=== PATIENT | female | born 1965 | race Caucasian/White ===

== ENCOUNTER → 2020-03-07 | Emergency (ER) | payer BC ==
[~2020-03-07] VITALS: Ht 167.6 cm; Wt 68.2 kg
[~2020-03-07] MED LIST: ANTIDEPRESSANT; BREO ELLIPTA 11 EACH INH; COLACE100 MG PO; MAGNESIUM OXID250 MG PO; OMEPRAZOLE40 MG PO; PROAIR HFA8.5 G1 INH; STERAPRED DS 1010 MG PO; TOPAMAX200 MG PO
[2020-03-07 17:14] VITALS: Ht 167.6 cm; Wt 68.2 kg
[2020-03-07 18:16] VITALS: BP 144/80
== END | disposition home or self-care (01) ==
LOC: D.ER 17:11
DX: J45.901 Unspecified asthma with (acute) exacerbation (principal); R06.00 Dyspnea, unspecified; R05 Cough; R68.89 Other general symptoms and signs

== ENCOUNTER 2020-04-15 20:53 | Emergency (ER) | payer BC ==
[~2020-04-15] VITALS: Ht 167.6 cm; Wt 70.5 kg
[2020-04-15 21:08] VITALS: Ht 167.6 cm; Wt 70.5 kg
[2020-04-15] MEDS ORDERED: ATIVAN1 MG PO (21:10)
[2020-04-15] MEDS ORDERED: TOPAMAX100 MG PO (21:10)
[2020-04-15] MEDS ORDERED: ANTIDEPRESSANT (21:10)
[2020-04-15] MEDS ORDERED: COLACE100 MG PO (21:10)
[2020-04-15 22:54] VITALS: BP 132/80
== END 2020-04-15 22:45 | disposition home or self-care (01) ==
LOC: D.ER 20:53
DX: S99.922A Unspecified injury of left foot, initial encounter (principal); W22.8XXA Striking against or struck by other objects, initial encounter; Y93.9 Activity, unspecified; Y92.9 Unspecified place or not applicable; J45.909 Unspecified asthma, uncomplicated

== ENCOUNTER 2020-09-13 16:05 | Emergency (ER) | payer BC ==
[~2020-09-13] VITALS: Ht 172.7 cm; Wt 70.5 kg
[~2020-09-13 16:05] MED LIST changes: +ATIVAN1 MG PO; +IBUPROFEN800 MG PO; +TOPAMAX100 MG PO; +VENTOLIN HFA [SP8 GM INH; +XOPENEX HFA15 GM INH
[2020-09-13 16:11] VITALS: BP 176/97; Ht 172.7 cm; Wt 70.5 kg
[2020-09-13 16:54] LABS: HEMATOCRIT 40.3 % (36.0-48.0); HEMOGLOBIN 13.1 g/dL (12-16); LYMPHOCYTES 14.3 % (15-50); MCH 29.8 pg (26.0-34.0); MCHC 32.5 g/dL (31.0-37.0); MCV 91.6 fL (80.0-100.0); MEAN PLATELET VOLUME 9.6 fL (7.4-10.4); NEUTROPHILS 78.7 % (40-80); PLATELET COUNT 189 10x3/uL (130-400); RDW 13.8 % (11.5-14.5); WBC 6.2 10x3/uL (4.8-10.8)
[2020-09-13 17:09] LABS: ANION GAP 12.5 mmol/L (8-16); CALCIUM 8.7 mg/dL (8.5-10.1); CARBON DIOXIDE 24.5 mmol/L (21.0-32.0); CREATININE - SERUM 1.3 mg/dL (0.6-1.3)
[2020-09-13 17:14] LABS: ALBUMIN 3.7 g/dL (3.4-5.0); BILIRUBIN - TOTAL 0.26 mg/dL (0.2-1.3); PROTEIN - SERUM 6.6 g/dL (6.4-8.2)
== END 2020-09-13 22:22 | disposition other institution (70) ==
LOC: D.ER 16:05
PROVIDERS: Emergency Medicine
DX: N23 Unspecified renal colic (principal); R79.89 Other specified abnormal findings of blood chemistry; N13.1 Hydronephrosis with ureteral stricture, not elsewhere classified; I10 Essential (primary) hypertension; J45.909 Unspecified asthma, uncomplicated

== ENCOUNTER 2020-10-26 12:37 | Observation (INO) | payer BC ==
[~2020-10-26] VITALS: Ht 172.7 cm; Wt 70.3 kg
--- NOTE | ~2020-10-26 | HEMODYNAMI ---
PATIENT:SERGIO PRAKASH MEDICAL RECORD: [id number] : 61 LOCATION:[address] ADMISSION DATE: 10/26/20 Generatedon:19:19 Patient name: SERGIO PRAKASH Patient #: [id number] SSN: : 1965 Date of study: 10/27/2020 Page: Of Hemodynamic Procedure Report Patient Data Patient Demographics Procedure consent was obtained First Name: SERGIO Gender: Female Last Name: OLINDA : 1965 Middle Initial: L Age: 55 year(s) Patient #: [id number] Race: Unknown Additional ID: [id number] Contact details Address: [address] [place] [address] State: [place] City: [place] Zip code: [address] Past Medical History Allergies Allergen Reaction Date Comments Reported Other allergy 10/27/2020 NESSA MCCALL. MARTIN BRENNAN Admission Admission Data Admission Date: 10/26/2020 Admission Time: 13:47 Room #: .2121 Height (in.): 67.72 BSA: 1.83 (m2) Height (cm.): 172 BMI: 23.66 (kg/m2) Weight (lbs.): 154.32 Weight (kg.): 70 Lab Results Lab Result Date: 10/27/2020 Lab Result Time: 0:00 Biochemistry Name Units Result Min Max BUN mg/dl 16 --(---*)-- 7 18 Creatinine mg/dl 1.1 --(--*-)-- 0.6 1.3 eGFR ml/min 54 *-(----)-- 90 120 NONAFRICAN CBC Name Units Result Min Max Hematocrit % 37.2 *-(----)-- 42 54 Hemoglobin g/dl 11.9 *-(----)-- 13.5 17.5 Procedure Procedure Types Cath Procedure Diagnostic Procedure LHC LHC w/Coronaries Procedure Description Procedure Date Procedure Date: 10/27/2020 Procedure Start Time: 9:07 Procedure End Time: 9:16 Procedure Staff Name Function Roverto Andrews MD Performing Physician Gay Lofton RT Monitor Sharla Barron RT Scrub Jose Morrison RN Nurse Procedure Data Cath Procedure Fluoroscopy Diagnostic fluoroscopy Total fluoroscopy Time: 0.9 time: 0.9 min min Diagnostic fluoroscopy Total fluoroscopy dose: 268 dose: 268 mGy mGy Contrast Material Contrast Material Type Amount (ml) Isovue 300 39 Entry Location Entry Primary Successful Side Size Upsize Upsize Entry Closure Succes sful Closure Location (Fr) 1 (Fr) 2 (Fr) Remarks Device Remarks Femoral Right 5 Fr Exoseal artery Estimated blood loss: 5 ml Diagnostic catheters Device Type Used For End Catheter Placement MULTIPACK JL 4.0 5Fr Procedure catheter MULTIPACK 3DRC 5Fr Procedure catheter MULTIPACK Pigtail 5 Fr Procedure catheter Procedure Complications No complications Procedure Medications Medication Administration Route Dosage Oxygen etCO2 Nasal cannula 2 l/min Lidocaine 2% added to field 20 Heparin Flush Bag added to field 2 bags (1000units/500ml NS) 0.9% NaCl I.V. 100 ml/hr Versed I.V. 2 mg Fentanyl I.V. 50 mcg Versed I.V. 1 mg Fentanyl I.V. 50 mcg Versed I.V. 1 mg Solumedrol I.V. 125 mg Hemodynamics Rest BSA: 1.83 (m2) HGB: 11.9 (g/dl) O2 Consumption: Estimated: 165.51 (ml/min) O2 Co nsumption indexed: Estimated:90.44 (ml/min/m) Heart Rate: 56 (bpm) Pressure Samples Time Site Value (mmHg) Purpose Heart Use Rate(bpm) 9:12 LV 115/8,26 Snapshot 56 9:12 LV 110/16,26 Snapshot 56 Gradients Valve Time Site Site Mean SEP/DFP Peak To Heart Use 1 2 (mmHg) (sec/min) Peak Rate (mmHg) (bpm) Aortic 9:13 LV AO 55 Snapshots Pre Cath Intra NCS Post Cath Vital Signs Time Heart Resp SPO2 etCO2 NIBP (mmHg) Rhythm Pain Sedation Rate (ipm) (%) (mmHg) Status Level (bpm) 8:55:24 58 22 99 0 129/73(104) NSR 0 (11) 10(A) , No pain 8:59:34 60 16 98 35.6 135/72(95) NSR 0 (11) 10(A) , No pain 9:03:44 53 17 98 31.2 106/62(83) NSR 0 (11) 10(A) , No pain 9:07:51 62 15 98 37.8 107/64(94) NSR 0 (11) 9(A) , No pain 9:12:01 55 14 98 34.9 106/62(82) NSR 0 (11) 9(A) , No pain 9:18:59 61 12 97 31.9 118/59(94) NSR 0 (11) 10(A) , No pain Medications Time Medication Route Dose Verified Delivered Reason Notes Effe ctiveness by by 9:03:43 Oxygen etCO2 2 Roverto Buffie used for Nasal l/min Darryl Morrison mobile lab technician cannula 9:03:49 Lidocaine 2% added 20ml Roverto Roverto for local to vial [facility] anesthetic field MD WILLIAM 9:03:56 Heparin Flush added 2 Roverto Roverto used for Bag to bags [facility] procedure (1000units/500ml field MD WILLIAM NS) 9:04:04 0.9% NaCl I.V. 100 Roverto Buffie Per ml/hr St Demetrius Morrison RN physician 9:04:16 Versed I.V. 2 mg Roverto Sharleneie for DarrylDemetrius Morrison RN sedation 9:04:23 Fentanyl I.V. 50 Roverto Buffie for [facility] DarrylDemetrius Morrison RN sedation 9:08:03 Versed I.V. 1 mg Roverto Suie for Darryl Morrison RN sedation 9:08:06 Fentanyl I.V. 50 Roverto Suie for [facility] DarrylDemetrius Morrison RN sedation 9:11:26 Versed I.V. 1 mg Roverto Suie for Darryl Morrison RN sedation 9:16:25 Solumedrol I.V. 125 Roverto Suie Per mg Darryl Morrison RN physician Procedure Log Time Note 8:25:30 Informed consent obtained and on chart 8:26:18 Procedure Status Urgent Heart Cath (IP). 8:26:22 Time tracking: Call back (After hours or weekends) 8:26:25 Plan of Care:Hemodynamics will remain stable., Cardiac rhythm will remain stable., Comfort level will be maintained., Respiratory function will remain adequate., Patient/ family verbilizes understanding of procedure., Procedure tolerated without complication., Recovers from procedure without complications.. 8:26:32 H&P Date Dictated: 10/26/2020 ER History on chart.. 8:27:00 Patient allergic to Other allergyPCN, HALDOL. MARTIN BRENNAN 8:30:18 Jose Morrison RN sent for patient. Start room use. 8:47:00 Patient received from Med II to CCL 1 Alert and oriented. Tansferred to table in Supine position. 8:47:02 Warm blankets applied, and jose eduardo hugger turned on for patient comfort. 8:47:02 Correct patient and procedure confirmed by team. 8:47:03 ECG and BP/O2 sat monitors applied to patient. 8:54:17 Baseline sample Acquired. 8:54:17 Vital chart was started 8:54:20 Rhythm: sinus bradycardia 8:54:21 Full Disclosure recording started 8:54:21 Pre-procedure instructions explained to patient. 8:54:21 Pre-op teaching completed and patient verbalized understanding. 8:54:23 Family unavailable. 8:54:24 Patient NPO since Midnight. 8:55:45 Is the patient allergic to Iodine/contrast media? No. 8:55:47 Is patient on blood thinner?No 8:57:17 Patient diabetic? No. 8:57:19 Patient not . Patient is over age 55. 8:57:20 Previous problem with sedation/anesthesia? No ? 8:57:22 Snore? Yes 8:57:23 Sleep apnea? No 8:57:24 Deviated septum? No 8:57:25 Opens mouth fully? Yes 8:57:26 Sticks out tongue? Yes 8:57:33 Airway obstruction? Yes ASTHMA AND POST COVID 8:57:35 Dentures? No ? 8:57:38 Pre procedure: right dorsailis pedis pulse 1+ Palpable, but thready & weak; easily obliterated 8:57:40 Patient pain scale 4/10 ?. 8:57:46 IV patent on arrival in left antecubital with 0.9% NaCl at [facility]. 8:58:12 Lab Result : BUN 16 mg/dl 8:58:12 Lab Result : eGFR NONAFRICAN 54 ml/min 8:58:12 Lab Result : Creatinine 1.1 mg/dl 8:58:12 Lab Result : Hemoglobin 11.9 g/dl 8:58:12 Lab Result : Hematocrit 37.2 % 8:58:15 Lab results completed and on chart. 8:58:18 Right Radial & Right Groin area was prepped with chlora-prep and draped in sterile fashion 8:58:19 Alarms reviewed by RAmee N. 8:58:19 Sharps counted by scrub and verified by R.N. 8:58:26 Patient Weight : 154.32 lbs 8:58:28 Patient Height : 67.72 inches 9:00:39 Use device set Femoral Dx 9:00:40 ACIST Syringe (14328) opened to sterile field. 9:00:41 Bag Decanter (2002S) opened to sterile field. 9:00:42 ACIST Hand Control (76508) opened to sterile field. 9:00:42 ACIST Manifold (42814) opened to sterile field. 9:00:43 Tegaderm 4 x 4 (1626W) opened to sterile field. 9:00:45 Medline Cath Pack ([id number]) opened to sterile field. 9:00:46 DIAGNOSTIC Multipack 5Fr catheter set (VY4631) opened to sterile field. 9:00:47 SHEATH 5FR [place] (YSB391) opened to sterile field. 9:00:47 EMERALD Guide Wire (752-549) opened to sterile field. 9:02:14 --------ALL STOP TIME OUT------ 9:02:14 Final Timeout: patient, procedure, and site verified with staff and physician. All members of the team are in agreement. 9:02:15 Right groin site verified by team. 9:02:18 Fire Safety Assessment: A--An alcohol-based skin anteseptic being used preoperatively., C--Open oxygen or nitrous oxide is being used., D--An ESU, laser, or fiber-optic light is being used. 9:02:20 Physical assessment completed. ASA score P 2 - A patient with mild systemic disease as per Roverto Andrews MD. 9:02:24 3a) 45-59 Moderately reduced kidney function. 9:02:26 Maximum allowable contrast dose (3.7 X eGFR X 0.75)150 ml. 9:02:29 Sedation plan: IV Moderate Sedation Medication:Versed, Fentanyl 9:03:43 Oxygen 2 l/min etCO2 Nasal cannula was administered by Jose Morrison RN; used for procedure; Verbal order read back and verified. 9:03:49 Lidocaine 2% 20ml vial added to field was administered by Roverto Andrews MD; for local anesthetic; Verbal order read back and verified. 9:03:56 Heparin Flush Bag (1000units/500ml NS) 2 bags added to field was administered by Roverto Andrews MD; used for procedure; Verbal order read back and verified. 9:04:04 0.9% NaCl 100 ml/hr I.V. was administered by Jose Morrison RN; Per physician; Verbal order read back and verified. 9:04:16 Versed 2 mg I.V. was administered by Jose Morrison RN; for sedation; Verbal order read back and verified. 9:04:23 Fentanyl 50 mcg I.V. was administered by Jose Morrison RN; for sedation; Verbal order read back and verified. 9:07:32 Procedure started. 9:07:37 Local anesthetic to right femoral artery with Lidocaine 2% by Roverto Andrews MD.INITIAL ACCESS ONLY 9:08:03 Versed 1 mg I.V. was administered by Jose Morrison RN; for sedation; Verbal order read back and verified. 9:08:06 Fentanyl 50 mcg I.V. was administered by Jose Morrison RN; for sedation; Verbal order read back and verified. 9:09:04 A 5 Fr sheath was inserted into the Right Femoral artery 9:09:14 A MULTIPACK JL 4.0 5Fr catheter was advanced over the wire and used for Procedure. 9:10:17 LCA angiography performed. 9:10:18 Catheter removed. 9:10:24 A MULTIPACK 3DRC 5Fr catheter was advanced over the wire and used for Procedure. 9:11:21 RCA angiography performed. 9:11:22 Catheter removed. 9:11:24 ACCDominant side:Right 9:11:26 Versed 1 mg I.V. was administered by Jose Morrison RN; for sedation; Verbal order read back and verified. 9:11:28 A MULTIPACK Pigtail 5 Fr catheter was advanced over the wire and used for Procedure. 9:12:40 LV gram done using ZAYAS 9:12:42 Injector settings: Ml/sec: 10, Volume: 20, 9:12:55 LV hemodynamics recorded. 9:13:26 EF : 55 % 9:13:35 Catheter removed. 9:13:37 EXOSEAL 5Fr (EX500) opened to sterile field. 9:13:45 Sheath removed intact; hemostasis achieved with Exoseal to the Right Femoral artery. 9:13:57 Procedure ended.(Physican Out) 9:14:08 Contrast amount:Isovue 300 39ml. 9:14:09 Maximum allowable dose exceeded? No. 9:14:14 Fluoroscopy time 00.90 minutes. 9:14:18 Fluoroscopy dose: 268 mGy 9:14:18 Flurop Dose total: 268 9:14:22 Dose Area Product 02825 mGy/cm. 9:14:25 Post-op/insertion site Right Femoral artery dressed using a 4 x 4 and Tegaderm. 9:14:30 Post-procedure physical assessment completed. ASA score P 2 - A patient with mild systemic disease as per Roverto Andrews MD. 9:14:34 Post procedure rhythm: sinus bradycardia 9:14:41 Estimated blood loss: 5 ml 9:14:43 Post procedure instruction explained to patient.Patient verbalizes understanding. 9:14:43 Patient needs reinforcement of post procedure teaching. 9:15:12 Procedure and supply charges have been captured, reviewed, submitted and are correct. 9:15:14 Procedure Complication : No complications 9:15:16 Vital chart was stopped 9:15:18 [facility] Findings: mild to moderate CAD (<70%) 9:15:19 Operative report dictated upon procedure completion. 9:15:19 See physician's report for complete and final results. 9:15:21 Report given to [facility]. 9:15:24 Patient transfered to [facility] with Bed. 9:16:25 Solumedrol 125 mg I.V. was administered by Jose Morrison RN; Per physician; Verbal order read back and verified. 9:16:43 Procedure ended. 9:16:43 Full Disclosure recording stopped 9:17:49 End room use (Document Last) 9:18:14 Procedure ended.(Physican Out) Device Usage Item Name Manufacture Quantity Catalog Hospital Part Current Minimal L ot# / Number Charge Number Stock Stock Serial# Code ACIST Acist 1 22296 [id number] 435118 856934 20 Immerse Learning (21686) Systems Inc Bag Microtek 1 069655 97891 565761 5 Decanter Medical Inc. () ACIST Hand Acist 1 87670 056374 300803 956659 5 Control Medical (57619) Systems Inc ACIST Acist 1 16450 202544 941023 534026 5 Manifold Medical (29548) Systems Inc Tegaderm 4 3M 1 1626W 043802 115714 710662 5 x 4 (1626W) Medline Medline 1 [id number] 020539 15793 737803 5 Cath Pack ([id number]) DIAGNOSTIC Cardinal 1 [id number] 303695 06439 671457 30 Multipack HypeSpark 5Fr catheter set (NI7866) SHEATH 5FR Terumo 1 CIK435 652313 893520 172429 5 [place] (FGN227) EMERALD Cardinal 1 502-455 733709 246549 175588 5 Guide Wire Health (502455) MULTIPACK Cardinal 1 228741 5 JL 4.0 5Fr Health catheter MULTIPACK Cardinal 1 592905 5 3DRC 5Fr Health catheter MULTIPACK Cardinal 1 643559 5 Pigtail 5 Health Fr catheter EXOSEAL 5Fr Cardinal 1 EX500 204702 776956 496348 10 (EX500) Health Signature Audit Jackson Stage Time Signature Unsigned Intra-Procedure 10/27/2020 Sharla Barron 9:17:57 AM RT(R) Intra-Procedure 10/27/2020 Jose Morrison RN 9:18:14 AM Intra-Procedure 10/27/2020 Roverto Gaelas 9:19:25 AM Demetrius [place] [id number] [place] [id number]
--- NOTE | ~2020-10-26 | EC ---
PATIENT:SERGIO PRAKASH DATE OF SERVICE: 10/26/20 SEX: F MEDICAL RECORD: [id number] DATE OF : 61 LOCATION:D.M2 D.212 AGE OF PATIENT: 55 ADMISSION DATE: 10/26/20 REFERRING PHYSICIAN: INTERPRETING PHYSICIAN: KATIE IGNACIO MD ECHOCARDIOGRAM REPORT ECHO CHARGES 4 ECHO COMPLETE Date: 10/27/20 CLINICAL DIAGNOSIS: CP ECHOCARDIOGRAPHIC MEASUREMENTS (adult normal given) AC root (d.<3.7cm) 2.9 cm LV Septum d (<1.2 cm> 1.2 cm Valve Excursion 1.7 cm LV Septum (systole) 1.6 cm Left Atria (s.<4.0cm> 3.5 cm LVPW d(<1.2cm) 1.2 cm RV (d.<2.3cm) 2.4 cm LVPW (sytole) 1.7 cm LV diastole(<5.6CM) 5.0 cm MV E-F(>70mm/sec) cm LV systole 3.0 cm LVOT Diameter 1.7 cm MV exc.(>10mm) cm Est.ejection fraction (50-75%) % DOPPLER: LVIT cm/sec A 50.0 cm/sec E 82.0 cm/sec LA cm/sec RVSP 28.1 mmHg LVOT 82.0 cm/sec AOP1/2T m/s Asc. Ao 128 cm/sec RVOT 64.0 cm/sec RA cm/sec PA 104 cm/sec AV Gradient Peak 6.5 mmHg AV Mean 3.1 mmHg AV Area 1.8 cm MV Gradient Peak 3.5 mmHg MV Mean 1.2 mmHg MV Area cm COMMENTS: Hide Or Skin Buffer: 1 GARRY CAMPOSOE Steamer Blocker: 3 Dr. Rich TAPE# PACS Pericardial Effusion N DATE OF SERVICE: Adequate 2D, color flow imaging, spectral Doppler, and M-Mode. FINDINGS: Borderline LVH. LV internal dimensions are normal. Wall motion is normal. EF is greater than or equal to 55%. Aortic valve is tricuspid. No evidence of stenosis by Doppler interrogation. Left atrium is normal at 3.5 cm. Mitral valve shows no prolapse. Trace MR. Right size is grossly normal. Trace TR. ECHOCARDIOGRAM REPORT [id number] SERGIO PRAKASH TRANSINT:[id number] Voice Confirmation ID: [id number] DOCUMENT ID: [id number] KATIE IGNACIO MD CC: [id number] DICTATION DATE: 10/28/20 1111 NATIONAL SALES MANAGER: 10/28/20 1430 DIS IN 10/27/20 [place] [address] [id number] [place] [address]
[2020-10-26] MEDS ORDERED: PROZAC40 MG PO (13:02)
[2020-10-26] MEDS ORDERED: MERIBIN5 MG PO (13:02)
[2020-10-26] MEDS ORDERED: LAMICTAL25 MG PO (13:02)
[2020-10-26] MEDS ORDERED: BILBERRY100 MG PO (13:03)
[2020-10-26] MEDS ORDERED: TOZAL SOFTGEL1 EACH PO (13:03)
[2020-10-26 13:04] LABS: BASOPHILS 0.7 % (0-2); EOSINOPHILS 3.3 % (0-7); HEMATOCRIT 36.8 % (36.0-48.0); LYMPHOCYTE ABS# 1.19 10x3/uL (1.18-3.74); LYMPHOCYTES 28.4 % (15-50); MCH 29.2 pg (26.0-34.0); MCHC 32.6 g/dL (31.0-37.0); MCV 89.5 fL (80.0-100.0); MEAN PLATELET VOLUME 10.4 fL (7.4-10.4); MONOCYTES 12.4 % (2-11); NEUTROPHIL ABS# 2.31 10x3/uL (1.56-6.13); NEUTROPHILS 55.2 % (40-80); RBC 4.11 10x6/uL (4.00-5.40); RDW 14.2 % (11.5-14.5); WBC 4.2 10x3/uL (4.8-10.8)
[2020-10-26 13:06] LABS: PLATELET COUNT 232 10x3/uL (130-400)
[2020-10-26 13:14] LABS: CALC OSMOLALITY 280 mosm/kg (275-300); CALCIUM 8.6 mg/dL (8.5-10.1); CARBON DIOXIDE 22.3 mmol/L (21.0-32.0); CHLORIDE - SERUM 107 mmol/L (98-107); GLUCOSE 101 mg/dL (74-106); POTASSIUM - SERUM 3.3 mmol/L (3.5-5.1); SODIUM 140 mmol/L (136-145); UREA NITROGEN 17 mg/dL (7-18); eGFR NON AFRICAN AMERICAN 61 mL/min (90-120)
[2020-10-26 13:16] LABS: APTT 28.3 SECONDS (22.8-39.4); INR 1.11 (0.85-1.17); PROTIME 13.3 SECONDS (11.6-15.0)
[2020-10-26 13:32] LABS: ALBUMIN 3.7 g/dL (3.4-5.0); ALKALINE PHOSPHATASE 135 U/L (30-120); ALT (SGPT) 26 U/L (10-68); BILIRUBIN - TOTAL 0.32 mg/dL (0.2-1.3); CKMB 1.3 U/L (0.0-3.6); CREATINE KINASE 243 UL (21-215); MAGNESIUM - SERUM 1.9 mg/dL (1.8-2.4); PROTEIN - SERUM 6.5 g/dL (6.4-8.2); TROPONIN-I < 0.017 ng/mL (0.000-0.060)
[2020-10-26 13:33] VITALS: BP 152/83
[2020-10-26 14:25] VITALS: BP 121/53
[2020-10-26 15:07] VITALS: BP 135/60; Ht 172.7 cm; Wt 70.3 kg
[2020-10-26] MEDS ORDERED: FAMOTIDINE10 MG PO (15:51)
[2020-10-26 16:59] LABS: CHOL - HDL RATIO 4.7 ratio (2.3-4.1); CHOLESTEROL, TOTAL 179 mg/dL (0-200); HDL CHOLESTEROL 38 mg/dL (32-96); TRIGLYCERIDE 406 mg/dL (30-200)
[2020-10-26 19:10] LABS: CKMB 1.1 U/L (0.0-3.6); CREATINE KINASE 199 UL (21-215); TROPONIN-I < 0.017 ng/mL (0.000-0.060)
[2020-10-26 20:09] VITALS: BP 144/78
[2020-10-27 01:28] VITALS: BP 114/67
[2020-10-27 02:02] LABS: CREATINE KINASE 162 UL (21-215); TROPONIN-I < 0.017 ng/mL (0.000-0.060)
[2020-10-27 05:29] VITALS: BP 117/64
[2020-10-27 05:37] LABS: BASOPHILS 1.1 % (0-2); EOSINOPHILS 3.7 % (0-7); HEMATOCRIT 37.2 % (36.0-48.0); HEMOGLOBIN 11.9 g/dL (12-16); IMMATURE GRANULOCYTES 0.2 % (0-5); LYMPHOCYTE ABS# 1.52 10x3/uL (1.18-3.74); LYMPHOCYTES 34.7 % (15-50); MCH 29.1 pg (26.0-34.0); MEAN PLATELET VOLUME 10.1 fL (7.4-10.4); MONOCYTES 12.1 % (2-11); NEUTROPHIL ABS# 2.11 10x3/uL (1.56-6.13); NEUTROPHILS 48.2 % (40-80); PLATELET COUNT 242 10x3/uL (130-400); RBC 4.09 10x6/uL (4.00-5.40); RDW 14.4 % (11.5-14.5); WBC 4.4 10x3/uL (4.8-10.8)
[2020-10-27 06:10] LABS: ALBUMIN 3.4 g/dL (3.4-5.0); BILIRUBIN - TOTAL 0.34 mg/dL (0.2-1.3); CALCIUM 8.5 mg/dL (8.5-10.1); CARBON DIOXIDE 25.6 mmol/L (21.0-32.0); CREATININE - SERUM 1.1 mg/dL (0.6-1.3); MAGNESIUM - SERUM 2.1 mg/dL (1.8-2.4); POTASSIUM - SERUM 3.6 mmol/L (3.5-5.1); PROTEIN - SERUM 5.8 g/dL (6.4-8.2)
[2020-10-27 07:34] VITALS: BP 104/57
[2020-10-27] MEDS ORDERED: BETAPACE 80 MG80 MG PO (10:23)
[2020-10-27 11:47] VITALS: BP 121/71
[2020-10-27 12:07] VITALS: BP 118/68
--- NOTE | 2020-10-27 12:30 | NUR ---
I have reviewed this patient and I concur with the Shift Assessment completed by the Licensed Practical Nurse today this shift.
--- NOTE | 2020-10-28 09:56 | CN ---
PATIENT NAME:SERGIO PRAKASH MEDICAL RECORD: [id number] : 61 LOCATION:[facility].1 ADMIT DATE: 10/26/20 ACCOUNT: [id number] CONSULTING PHYSICIAN: KATIE IGNACIO MD REFERRING PHYSICIAN: ASHLIE GATICA MD DATE OF CONSULTATION: 10/26/2020 HISTORY OF PRESENT ILLNESS: Sukh is a 55-year-old female with no known cardiovascular history. She does have a family history of coronary artery disease, admitted to the hospital with worsening chest pain that has been ongoing since post-COVID. She does have a strong family history of coronary artery disease, had onset severe symptoms with rest symptomatology today, radiating to the back. We were asked to see her concerning her cardiovascular status. PAST MEDICAL HISTORY: Includes history of reactive airway disease, recent diagnosis, and gastroesophageal reflux disease. ALLERGIES: PENICILLIN, HALDOL, CODEINE, AMBIEN. SOCIAL HISTORY: Works here at the hospital. Nonsmoker, nondrinker, but no set exercise programs. MEDICATIONS: Include ProAir 90 mcg q.4 hours p.r.n., Ativan 1 gram p.o. b.i.d., Topamax 200 b.i.d., Lamictal 50 mg p.o. every day, Prozac 40 mg p.o. every day, ibuprofen as needed, Pepcid 20 mg p.o. every day, magnesium oxide 250 mg p.o. every day. REVIEW OF SYSTEMS: The patient reports easy bruising but reports no swollen glands. The patient reports no fever, no night sweats, no significant weight gain, no significant weight loss. No significant exercise tolerance. The patient reports no dry eyes, no irritation, no vision change. Patient reports no difficulty hearing and no ear pain. Patient reports no frequent nose bleeds or nose and sinus problems. Patient reports on arm pain on exertion. No shortness of breath while lying down. No history of heart murmur. Patient reports no cough, no wheezing or coughing up blood. Patient reports no abdominal pain, no vomiting. Normal appetite. No diarrhea and not vomiting blood. No nausea and no constipation. Patient reports no incontinence. No difficulty urinating. No hematuria. No increased frequency. Patient reports no muscle aches. No weakness, no arthralgias, no back pain. No swelling of the extremities. Patient reports no abnormal mole, no jaundice, no rashes. Reports no loss of consciousness. No weakness and no numbness. No seizures, dizziness, or headaches. The patient reports no depression, no sleep disturbance, feeling safe in a relationship and no alcohol abuse. Patient reports on fatigue. Reports no runny nose or sinus pressure. No itching, no hives, and no frequent sneezing. PHYSICAL EXAMINATION: GENERAL: No acute distress, appears stated age, [age]. VITAL SIGNS: Pulse 68 and regular. HEENT: Normocephalic, atraumatic. NECK: No bruits are heard. HEART: Regular. Questionable S4 gallop. LUNGS: Fairly good air entry at this point. ABDOMEN: Soft, nontender. CONSULT REPORT [id number] SERGIO PRAKASH EXTREMITIES: Pulses 2+. There is no edema. DIAGNOSTIC DATA: EKG shows frequent PVCs, nonspecific ST-T changes. IMPRESSION: Acute coronary syndrome with rest symptomatology at this point, a class IV. Enzymes negative currently. Agree with serial enzymes, serial EKGs. We will plan for angiography. Further recommendations based on the above. TRANSINT:[id number] Voice Confirmation ID: [id number] DOCUMENT ID: [id number] KATIE IGNACIO MD at 0956 CC: [id number] DICTATION DATE: 10/26/20 170 LICENSING DIRECTOR: 10/27/20 021 DIS IN 10/27/20 [facility] [address] [place] [address]
--- NOTE | 2020-10-28 09:56 | OP ---
PATIENT NAME: SERGIO PRAKASH MEDICAL RECORD: [id number] :61 LOCATION:D.M2 D.2120 ADMISSION DATE:10/26/20 SURGEON: KATIE IGNACIO MD DATE OF OPERATION: 10/27/2020 PROCEDURE PERFORMED: Left heart catheterization, selective coronary angiography, right femoral approach. CATHETERS: A 5-Tristanian sheath, 5/4 left and right Juanita, 5/4 pig. The procedure was well tolerated, the patient returned to rees, sheath removed. ExoSeal device placed. FINDINGS: Left ventriculography 30-degree ZAYAS view, normal wall motion, normal systolic function. CORONARY ANATOMY: Left main: Left main free of disease. LAD: Free of disease in the diagonal system. CIRCUMFLEX: Free of disease in the marginal system. RIGHT CORONARY ARTERY: Dominant artery, gives rise to PDA, free of disease. IMPRESSION: Normal LV systolic function, normal coronary anatomy. TRANSINT:[id number] Voice Confirmation ID: [id number] DOCUMENT ID: [id number] KATIE IGNACIO MD at 0956 CC: [id number] DICTATION DATE: 10/27/20916 LOCAL ANNOUNCER: 10/27/20 0953 DIS IN 10/27/20 [place] [id number] [place] [address]
== END 2020-10-27 13:11 | disposition home or self-care (01) ==
LOC: D.ER 12:37 → D.M2 13:47 → OBSVTIME 16:00 → D.M2 10-27 13:11
PROVIDERS: Family Medicine; Internal Medicine Interventional Cardiology; ADMIT Family Medicine; ATTEND Family Medicine
DX: I24.9 Acute ischemic heart disease, unspecified (principal); R07.9 Chest pain, unspecified; R00.0 Tachycardia, unspecified; E87.6 Hypokalemia; I10 Essential (primary) hypertension

== ENCOUNTER → 2020-12-24 13:44 | Outpatient (CLI) | payer BC ==
[~2020-12-24 13:44] MED LIST changes: +BETAPACE 80 MG80 MG PO; +BILBERRY100 MG PO; +FAMOTIDINE10 MG PO; +LAMICTAL25 MG PO; +MERIBIN5 MG PO; +PROZAC40 MG PO; +TOZAL SOFTGEL1 EACH PO
== END | disposition home or self-care (01) ==
LOC: D.LAB 13:44
PROVIDERS: ATTEND Internal Medicine Pulmonary Disease
DX: Z11.52 Encounter for screening for COVID-19 (principal)